=== PATIENT | male | born 1965 | race Caucasian/White ===

== ENCOUNTER 2016-04-28 11:25 | Emergency (ER) | payer OTHER ==
[~2016-04-28] VITALS: Ht 170.2 cm; Wt 73.0 kg
[2016-04-28 11:34] VITALS: TEMP 36.8; Ht 170.2 cm; Wt 73.0 kg
--- NOTE | 2016-04-28 12:13 | EMERGENCY ROOM VISIT NOTE ---
History First contact with patient: 11:58 Chief Complaint: KNEEPAIN Stated Complaint: SWELLING IN BOTH KNEES, LOTS OF PAIN History of Present Illness The patient is a 51 year old male who presents to the Emergency Room with complaints of knee pain. The patient states he has a history of inflammatory condition in which his knees and upper extremities become painful and swollen. The patient states that 3 days ago he began to notice pain and swelling in the left knee. He states that his right knee has begun to bother him as well. The patient states that he had fluid removed from the left knee approximately one year ago by an orthopedist in [place]. The patient rates his discomfort an 8/ 10. He denies any fevers. He denies any known injuries. Review of Systems A 10 system review of systems was completed with positives and pertinent negatives listed in the HPI. Past Medical/Surgical History Patient denies Social History Smoking Status: Current Every Day Smoker Housing Status: lives with family Current/Historical Medications Scheduled Amoxicillin & Pot Clavulanate (Augmentin 875-125 mg), 1 TAB PO BID Sulfa/Trimethoprim (Bactrim Ds 800MG/160MG), 1 TAB PO BID Scheduled PRN Oxycodone/Acetaminophen 5MG/325MG (Percocet 5MG/325MG), 1 TAB PO Q4H PRN for Pain Allergies Coded Allergies: No Known Allergies (Unverified , 04/28/16) Physical Exam Vital Signs Date Time Temp Pulse Resp B/P Pulse Ox O2 Delivery O2 Flow Rate FiO2 04/28/16 15:05 75 18 126/81 97 04/28/16 13:03 68 20 133/87 97 Room Air 04/28/16 11:34 36.8 73 18 134/85 98 Room Air Physical Exam VITALS: Vitals are noted on the nurse's note and reviewed by myself. Vital signs stable. The patient is afebrile. GENERAL: This is a 51-year-old male, in no acute distress, nondiaphoretic, well- developed well-nourished. SKIN: There is erythema, fluctuance over the left patella. There is no drainage. There is no tenting of the skin. Capillary reflex less than 2 seconds. HEAD: Normocephalic atraumatic. EARS: The external ears are normal in appearance. EYES: Pupils equal round and reactive to light and accommodation. Conjunctivae without injection, sclerae without icterus. Extraocular movements intact. NOSE: Patent, turbinates without inflammation or discharge. MOUTH: Mucous membranes moist. Tonsils are not enlarged. Pharynx without erythema or exudate. Uvula midline. Airway patent. Tongue does not deviate. NECK: Supple without nuchal rigidity. No JVD. HEART: Regular rate and rhythm without murmurs gallops or rubs. LUNGS: Clear to auscultation bilaterally without wheezes, rales or rhonchi. No retractions or accessory muscle use. MUSCULOSKELETAL: There is fluctuance, erythema and warmth over the patella of the left knee. There is no obvious joint effusion. There is no pain with joint loading. There is no tenderness of the calf or palpable cord. There is no obvious laxity. There is mild discomfort to the posterior right knee. There is no calf tenderness, palpable cord. There is no erythema, warmth or joint effusion of the right. There is no obvious laxity of the right knee. Strength 5/5 throughout. NEURO: Patient was alert and oriented to person place and time. . No focal neurological deficits. Medical Decision & Procedures ER Provider Diagnostic Interpretation: RIGHT KNEE 3 VIEWS CLINICAL HISTORY: Bilateral knee pain and swelling. COMPARISON: None FINDINGS: Alignment of the right knee is anatomic. There is no fracture. There is a moderate-sized joint effusion. Joint spaces are preserved. IMPRESSION: 1. No osseous abnormality of the right knee. 2. Moderate-sized right knee joint effusion. LEFT KNEE 3 VIEWS CLINICAL HISTORY: Left knee pain. Swelling. COMPARISON: None. DISCUSSION: No fractures or dislocations are visualized. There is pubic patellar soft tissue swelling. IMPRESSION: Prepatellar soft tissue swelling. No fractures are visualized. Laboratory Results 04/28/16 13:40 Red Blood Count 4.93, Mean Corpuscular Volume 87.2, Mean Corpuscular Hemoglobin 30.2, Mean Corpuscular Hemoglobin Concent 34.7, Mean Platelet Volume 10.4, Neutrophils (%) (Auto) 74.9, Lymphocytes (%) (Auto) 16.2, Monocytes (%) (Auto) 6.9, Eosinophils (%) (Auto) 1.4, Basophils (%) (Auto) 0.3, Neutrophils # (Auto) 8.31, Lymphocytes # (Auto) 1.80, Monocytes # (Auto) 0.77, Eosinophils # (Auto) 0.15, Basophils # (Auto) 0.03 Test 04/28/16 13:40 White Blood Count 11.09 K/uL (4.8-10.8) Red Blood Count 4.93 M/uL (4.7-6.1) Hemoglobin 14.9 g/dL (14.0-18.0) Hematocrit 43.0 % (42-52) Mean Corpuscular Volume 87.2 fL (80-100) Mean Corpuscular Hemoglobin 30.2 pg (25-34) Mean Corpuscular Hemoglobin Concent 34.7 g/dl (32-36) Platelet Count 256 K/uL (130-400) Mean Platelet Volume 10.4 fL (7.4-10.4) Neutrophils (%) (Auto) 74.9 % Lymphocytes (%) (Auto) 16.2 % Monocytes (%) (Auto) 6.9 % Eosinophils (%) (Auto) 1.4 % Basophils (%) (Auto) 0.3 % Neutrophils # (Auto) 8.31 K/uL (1.4-6.5) Lymphocytes # (Auto) 1.80 K/uL (1.2-3.4) Monocytes # (Auto) 0.77 K/uL (0.11-0.59) Eosinophils # (Auto) 0.15 K/uL (0-0.5) Basophils # (Auto) 0.03 K/uL (0-0.2) RDW Standard Deviation 40.1 fL (36.4-46.3) RDW Coefficient of Variation 12.5 % (11.5-14.5) Immature Granulocyte % (Auto) 0.3 % Immature Granulocyte # (Auto) 0.03 K/uL (0.00-0.02) Medications Administered Medications (Trade) Dose Ordered Sig/Hattie Route Start Time Stop Time Status Last Admin Dose Admin Ampicillin Sodium/ Sulbactam Sodium/ Sodium Chloride (Unasyn Inj/Nss 100ml) 108 ml @ 200 mls/hr ONE ONCE IV 04/28/16 13:30 04/28/16 14:02 DC 04/28/16 14:16 200 MLS/HR Procedure Prepatellar bursitis was drained. The left leg was identified and prepped in sterile fashion. The area was cleaned with Betadine. 3 ML's of 1% buffered lidocaine were used to anesthetize the skin via infiltration. An 18-gauge needle was used to express purulent material, approximately 3 mL. The wound was dressed in an Mitchell wrap was placed. The patient tolerated the procedure well. ED Course The patient was seen and examined. Previous visits were reviewed. The patient does not have fever. He is a mild leukocytosis of 11.09. X-ray of the right knee reveals joint effusion but no obvious bony abnormality X-ray of the left knee reveals prepatellar edema The patient appears to have prepatellar bursitis of the left knee. The patient does not have any pain with joint loading. He does not have any significant pain with movement of the joint. I do not suspect that this represents a joint infection at this time. The prepatellar bursitis was drained as above and moderate purulent material was expressed. He was given IV Unasyn and will be placed on Augmentin and Bactrim. He'll be given a prescription for pain medication. The patient does not have any erythema, warmth or pain with joint loading of the right knee. He does not have any obvious laxity. 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 He states that he has seen orthopedist for this. He states that he has been tested for Lyme disease in the past including a Lyme test on fluid that was drained from his joints. He states that the tests were negative. He has never seen a timber management technician. I advised him that he may need to see a timber management technician for his underlying joint problems. Today, he appears to have an infected prepatellar bursitis of the left knee. He should return in 24-48 hours for a recheck. He should follow-up with orthopedics. He should return with any fevers or worsening symptoms. The case was discussed with Dr. Gomez who agrees with the assessment and treatment plan Medical Decision The differential diagnosis includes septic arthritis, prepatellar bursitis, infected bursitis, strain, sprain, migratory arthritis, Lyme disease, among others [place] Drug Monitoring Program Search Results: patient reviewed within database, no issues identified Impression Primary Impression: Other infective bursitis, left knee Additional Impression: Effusion, right knee Departure Information Dispostion Home / Self-Care Condition GOOD Prescriptions Oxycodone/Acetaminophen 5MG/325MG (PERCOCET 5MG/325MG) Tab 1 TAB PO Q4H Y for Pain, #18 TAB For Initial Treatment Prov: Zaria Lee PA-C 04/28/16 Amoxicillin & Pot Clavulanate (Augmentin 875-125 mg) 1 Tab Tab 1 TAB PO BID for 10 Days, #20 TAB Prov: Zaria Lee PA-C 04/28/16 Sulfa/Trimethoprim (Bactrim Ds 800MG/160MG) Tab 1 TAB PO BID for 10 Days, #20 TAB Prov: Zaria Lee PA-C 04/28/16 Referrals No Doctor, Assigned (PCP) Varun Watkins M.D. Patient Instructions Bursitis, [facility] Additional Instructions Augmentin every 12 hours for 10 days Bactrim every 12 hours for 10 days Percocet 1-2 tablet every 4-6 hours as needed for worse pain. No driving or alcohol use with Percocet and do not take with Tylenol. Keep the area clean and dry Return to the emergency department in 24-48 hours for a recheck Follow-up with an orthopedic doctor for further evaluation and management of the ongoing joint pain Problem Qualifiers
[2016-04-28] MEDS ORDERED: XYLOCAINE 1%/SOD BICARB 20 ML VIAL INFIL ONE (12:15)
--- NOTE | 2016-04-28 12:42 | DIAGNOSTIC IMAGING REPORT ---
RIGHT KNEE 3 VIEWS CLINICAL HISTORY: Bilateral knee pain and swelling. COMPARISON: None FINDINGS: Alignment of the right knee is anatomic. There is no fracture. There is a moderate-sized joint effusion. Joint spaces are preserved. IMPRESSION: 1. No osseous abnormality of the right knee. 2. Moderate-sized right knee joint effusion. Electronically signed by: Eric Perez M.D. 04/28/2016 12:40 PM Dictated Date/Time: 04/28/2016 12:39 PM
--- NOTE | 2016-04-28 12:46 | DIAGNOSTIC IMAGING REPORT ---
LEFT KNEE 3 VIEWS CLINICAL HISTORY: Left knee pain. Swelling. COMPARISON: None. DISCUSSION: No fractures or dislocations are visualized. There is pubic patellar soft tissue swelling. IMPRESSION: Prepatellar soft tissue swelling. No fractures are visualized. Electronically signed by: Ismael Dennis M.D. 04/28/2016 12:44 PM Dictated Date/Time: 04/28/2016 12:43 PM
[2016-04-28] MEDS ORDERED: AMPICILLIN/SULBACTAM SOD INJ 3,000 MG in SODIUM CHLORIDE 0.9% 100ML 100 ML IV ONE (13:30)
[2016-04-28 13:58] LABS: BASO % 0.3 %; BASO ABS # 0.03 K/uL (0-0.2); COMPLETE YES; EOS % 1.4 %; IG% 0.3 %; LYMPH % 16.2 %; MEAN CELL VOLUME 87.2 fL (80-100); MEAN CORPUSCULAR HEMOGLOBIN 30.2 pg (25-34); MEAN CORPUSCULAR HGB CONC 34.7 g/dl (32-36); MEAN PLATELET VOLUME 10.4 fL (7.4-10.4); MONO % 6.9 %; NEUT % 74.9 %; PLATELET COUNT 256 K/uL (130-400); RED BLOOD COUNT 4.93 M/uL (4.7-6.1); WHITE BLOOD COUNT 11.09 K/uL (4.8-10.8)
[2016-04-28] MEDS ORDERED: AMOX875T PO (14:27)
[2016-04-28] MEDS ORDERED: SULF800T23 PO (14:27)
[2016-04-28] MEDS ORDERED: OXYC-57 PO (14:27)
[2016-04-28 15:05] VITALS: BP 126/81; PULSE 75; O2SAT 97
--- NOTE | 2016-04-30 15:41 | Pharmacy Progress Note ---
ED Pharmacist Progress Note Date of Service: Apr 30, 2016. Patient was sent home with a prescription for Augmentin and Bactrim, which should both cover the MSSA growing from the patient's knee/wound culture. Called patient - counseled that he could stop taking the Augmentin but should continue with Bactrim for the full course of therapy. Patient acknowledged understanding. Case discussed with Dr. Chaidez.
== END 2016-04-28 15:05 | disposition home or self-care (01) ==
LOC: C.EDB 11:28 → C.EDD 15:05
DX: M71.162 Other infective bursitis, left knee (principal); M25.461 Effusion, right knee; F17.200 Nicotine dependence, unspecified, uncomplicated

== ENCOUNTER 2016-06-19 15:13 | Emergency (ER) | payer OTHER ==
[~2016-06-19] VITALS: Ht 170.2 cm; Wt 70.8 kg
[~2016-06-19 15:13] MED LIST: OXYC-57 PO
[2016-06-19 15:16] VITALS: TEMP 36.5; Ht 170.2 cm; Wt 70.8 kg
[2016-06-19] MEDS ORDERED: ACETAMINOPHEN 500 MG TAB PO STA (17:07)
[2016-06-19] MEDS ORDERED: SODIUM CHLORIDE 0.9% 1000ML 1,000 ML IV STA (17:07)
--- NOTE | 2016-06-19 17:29 | DIAGNOSTIC IMAGING REPORT ---
CHEST ONE VIEW PORTABLE CLINICAL HISTORY: cough/fever COMPARISON STUDY: 04/29/2012 FINDINGS: The cardiac and mediastinal contours are normal. There is no evidence of focal pulmonary consolidation. There is no evidence of failure. No pleural effusions are visualized.[ IMPRESSION: No active disease in the chest. Electronically signed by: Ismael Dennis M.D. 06/19/2016 5:28 PM Dictated Date/Time: 06/19/2016 5:27 PM
[2016-06-19 17:31] VITALS: O2SAT 94
[2016-06-19 17:38] LABS: BASO % 0.6 %; BASO ABS # 0.03 K/uL (0-0.2); COMPLETE YES; EOS % 0.2 %; HEMATOCRIT 48.5 % (42-52); IG% 0.6 %; LYMPH % 10.7 %; LYMPH ABS # 0.56 K/uL (1.2-3.4); MEAN CELL VOLUME 85.5 fL (80-100); MEAN CORPUSCULAR HEMOGLOBIN 30.5 pg (25-34); MEAN CORPUSCULAR HGB CONC 35.7 g/dl (32-36); MEAN PLATELET VOLUME 10.7 fL (7.4-10.4); MONO % 2.7 %; NEUT % 85.2 %; PLATELET COUNT 118 K/uL (130-400); RED BLOOD COUNT 5.67 M/uL (4.7-6.1); WHITE BLOOD COUNT 5.25 K/uL (4.8-10.8)
[2016-06-19 17:50] LABS: ALT/SGPT 53 U/L (12-78); AST/SGOT 43 U/L (15-37); BLOOD UREA NITROGEN 13 mg/dl (7-18); BUN/CREATININE RATIO 11.2 (10-20); CALCIUM 8.6 mg/dl (8.5-10.1); CARBON DIOXIDE 30 mmol/L (21-32); CHLORIDE 100 mmol/L (98-107); GLUCOSE 103 mg/dl (70-99); POTASSIUM 4.4 mmol/L (3.5-5.1); SODIUM 137 mmol/L (136-145)
[2016-06-19 18:01] LABS: ALKALINE PHOSPHATASE 94 U/L (45-117)
[2016-06-19 18:25] LABS: LYME DISEASE AB IGG NEG (NEG); LYME DISEASE AB IGM NEG (NEG)
[2016-06-19 19:26] LABS: URINE APPEARANCE CLEAR (CLEAR); URINE COLOR DK YELLOW; URINE NITRITE NEG (NEG); URINE PH 7.5 (4.5-7.5); UROBILINOGEN NEG (NEG); ZZUR CULT IF INDIC CLEAN CATCH NO
[2016-06-19 19:36] LABS: MANUAL MICROSCOPIC REQUIRED? NO; REVIEW REQ? NO; SULFASALICYLIC ACID NEG (NEG); URINE BILIRUBIN NEG (NEG)
[2016-06-19] MEDS ORDERED: OSELTAMIVIR PHOSPHATE 75 MG CAP PO STA (20:12)
[2016-06-19] MEDS ORDERED: OSEL75CA12 PO (20:33)
--- NOTE | 2016-06-19 20:34 | EMERGENCY ROOM VISIT NOTE ---
History First contact with patient: 16:55 Chief Complaint: ILLNESS Stated Complaint: SICK History of Present Illness The patient is a 51 year old male who presents to the Emergency Department by private vehicle for evaluation of his chills. He reports that last evening he developed chills. He complains of fevers, but has not taken his temperature. He also complains of occasional headaches as well as cough. He denies any recent sick contacts. He did take NyQuil last evening with minimal relief of symptoms. He did receive his influenza vaccination this year. The patient complains of diffuse joint aches and pains rated his discomfort an 8/10. He denies any dizziness, lightheadedness, blurred vision, double vision, chest pain , palpitations, hemoptysis, nausea, vomiting, or abdominal pain. He denies any diarrhea. This is not the worst headache of his life. Review of Systems A complete 10-point Review of Systems was discussed with the patient, with pertinent positives and negatives listed in the History of Present Illness. All remaining Review of Systems questions can be considered negative unless otherwise specified. Social History Smoking Status: Current Every Day Smoker Smokeless Tobacco Use: No Drug Use: none Housing Status: lives with family Current/Historical Medications Scheduled Oseltamivir (Tamiflu), 75 MG PO BID Scheduled PRN Oxycodone/Acetaminophen 5MG/325MG (Percocet 5MG/325MG), 1 TAB PO Q4H PRN for Pain Allergies Coded Allergies: No Known Allergies (Unverified , 06/19/16) Physical Exam Vital Signs Date Time Temp Pulse Resp B/P Pulse Ox O2 Delivery O2 Flow Rate FiO2 06/19/16 21:24 78 18 121/78 97 Room Air 06/19/16 20:19 81 18 117/74 96 Room Air 06/19/16 19:01 87 18 138/97 96 Room Air 06/19/16 17:57 93 06/19/16 17:31 94 Room Air 06/19/16 17:15 91 17 144/99 94 Room Air 06/19/16 15:16 36.5 60 20 107/74 95 Room Air Pain Rating (0-10): 8 Physical Exam VITAL SIGNS - Vital signs and nursing notes were reviewed. GENERAL - Well nourished, well developed 51-year-old male in no acute distress. Pt communicates well with provider and answers questions appropriately. SKIN - Without rash. HEAD - NC/AT with no obvious deformities. EYES - PERRL with EOMI bilaterally. Sclera without injection. Palpebral conjunctiva pink and moist. EARS - No deformities of external structures noted on gross examination bilaterally. No pain elicited with palpation of the tragus bilaterally. External auditory canals without discharge or otorrhea. Tympanic membranes pearly lujan without retraction or bulging. No fluid or purulent material visualized behind the TM. Handle of malleus, umbo, cone of light, pars tensa/ flaccid all easily visualized. NOSE - Midline and without cyanosis. No purulent drainage noted. Nasal mucosa without mucus discharge. MOUTH/OROPHARYNX - Without perioral cyanosis. Buccal mucosa pink and moist and without leukoplakia. Tongue midline with equal elevation of palate bilaterally. No tonsillar hypertrophy, erythema, or exudates noted. NECK - Neck with FROM. Supple to palpation. No lymphadenopathy noted. No nuchal rigidity. LUNGS - Chest wall symmetric without accessory muscle use, intercostals retractions, or central cyanosis. Normal vesicular breath sounds CTA B/L. wheezes, rales, or rhonchi appreciated. CARDIAC - RRR with S1/S2. No murmur, rubs, or gallops appreciated. ABDOMEN - Abdominal contour flat without pulsations or visible masses. BS normoactive all four quadrants. No tenderness, palpable masses, hepatosplenomegaly, or ascites noted. Medical Decision & Procedures ER Provider Diagnostic Interpretation: Radiological imaging and reports were reviewed by myself. Radiologist's Interpretation as follows: CHEST ONE VIEW PORTABLE CLINICAL HISTORY: cough/fever COMPARISON STUDY: 04/29/2012 FINDINGS: The cardiac and mediastinal contours are normal. There is no evidence of focal pulmonary consolidation. There is no evidence of failure. No pleural effusions are visualized.[ IMPRESSION: No active disease in the chest. Laboratory Results 06/19/16 17:20 Red Blood Count 5.67, Mean Corpuscular Volume 85.5, Mean Corpuscular Hemoglobin 30.5, Mean Corpuscular Hemoglobin Concent 35.7, Mean Platelet Volume 10.7, Neutrophils (%) (Auto) 85.2, Lymphocytes (%) (Auto) 10.7, Monocytes (%) (Auto) 2.7, Eosinophils (%) (Auto) 0.2, Basophils (%) (Auto) 0.6, Neutrophils # (Auto) 4.48, Lymphocytes # (Auto) 0.56, Monocytes # (Auto) 0.14, Eosinophils # (Auto) 0.01, Basophils # (Auto) 0.03 06/19/16 17:20 Test 06/19/16 17:00 06/19/16 17:20 06/19/16 17:28 06/19/16 18:45 Influenza Type A Antigen Neg for Influ A (NEG) Influenza Type B Antigen Neg for Influ B (NEG) White Blood Count 5.25 K/uL (4.8-10.8) Red Blood Count 5.67 M/uL (4.7-6.1) Hemoglobin 17.3 g/dL (14.0-18.0) Hematocrit 48.5 % (42-52) Mean Corpuscular Volume 85.5 fL (80-100) Mean Corpuscular Hemoglobin 30.5 pg (25-34) Mean Corpuscular Hemoglobin Concent 35.7 g/dl (32-36) Platelet Count 118 K/uL (130-400) Mean Platelet Volume 10.7 fL (7.4-10.4) Neutrophils (%) (Auto) 85.2 % Lymphocytes (%) (Auto) 10.7 % Monocytes (%) (Auto) 2.7 % Eosinophils (%) (Auto) 0.2 % Basophils (%) (Auto) 0.6 % Neutrophils # (Auto) 4.48 K/uL (1.4-6.5) Lymphocytes # (Auto) 0.56 K/uL (1.2-3.4) Monocytes # (Auto) 0.14 K/uL (0.11-0.59) Eosinophils # (Auto) 0.01 K/uL (0-0.5) Basophils # (Auto) 0.03 K/uL (0-0.2) RDW Standard Deviation 41.2 fL (36.4-46.3) RDW Coefficient of Variation 13.2 % (11.5-14.5) Immature Granulocyte % (Auto) 0.6 % Immature Granulocyte # (Auto) 0.03 K/uL (0.00-0.02) Anion Gap 7.0 mmol/L (3-11) Est Creatinine Clear Calc Drug Dose 69.6 ml/min Estimated GFR () 81.8 Estimated GFR (Non- 70.6 BUN/Creatinine Ratio 11.2 (10-20) Calcium Level 8.6 mg/dl (8.5-10.1) Magnesium Level 2.0 mg/dl (1.8-2.4) Total Bilirubin 0.6 mg/dl (0.2-1) Aspartate Amino Transf (AST/SGOT) 43 U/L (15-37) Alanine Aminotransferase (ALT/SGPT) 53 U/L (12-78) Alkaline Phosphatase 94 U/L (45-117) Total Creatine Kinase 89 U/L (39-308) Creatine Kinase MB < 0.5 ng/ml (0.5-3.6) Creatine Kinase MB Ratio (0-3.0) Total Protein 7.8 gm/dl (6.4-8.2) Albumin 3.9 gm/dl (3.4-5.0) Globulin 3.9 gm/dl (2.5-4.0) Albumin/Globulin Ratio 1.0 (0.9-2) Lipase 102 U/L (73-393) Thyroid Stimulating Hormone (TSH) 0.260 uIu/ml (0.300-4.500) Lyme Disease IgG Antibody NEG (NEG) Lyme Disease IgM Antibody NEG (NEG) Bedside Troponin I 0.000 ng/ml (0-0.045) Urine Color DK YELLOW Urine Appearance CLEAR (CLEAR) Urine pH 7.5 (4.5-7.5) Urine Specific Porter 1.030 (1.000-1.030) Urine Protein NEG (NEG) Urine Glucose (UA) NEG (NEG) Urine Ketones TRACE (NEG) Urine Occult Blood NEG (NEG) Urine Nitrite NEG (NEG) Urine Bilirubin NEG (NEG) Urine Urobilinogen NEG (NEG) Urine Leukocyte Esterase NEG (NEG) Urine WBC (Auto) 1-5 /hpf (0-5) Urine RBC (Auto) 5-10 /hpf (0-4) Urine Hyaline Casts (Auto) 0 /lpf (0-5) Urine Epithelial Cells (Auto) 10-20 /lpf (0-5) Urine Bacteria (Auto) NEG (NEG) Medications Administered Medications (Trade) Dose Ordered Sig/Hattie Route Start Time Stop Time Status Last Admin Dose Admin Sodium Chloride (Nss 1000ml) 1,000 ml @ 999 mls/hr Q1H1M STAT IV 06/19/16 17:07 06/19/16 18:07 DC 06/19/16 17:37 999 MLS/HR Acetaminophen (Tylenol Tab) 1,000 mg NOW STAT PO 06/19/16 17:07 06/19/16 17:10 DC 06/19/16 17:38 1,000 MG Oseltamivir Phosphate (Tamiflu Cap) 75 mg NOW STAT PO 06/19/16 20:12 06/19/16 20:13 DC 06/19/16 20:22 75 MG Procedure Patient was placed on the playground monitor and monitored throughout the entire extent of their stay. In addition, the patient's pulse oximetry was monitored throughout the entire stay. Any abnormalities or aberrancies were addressed appropriately. ECG Indication: weakness Rate (beats per minute): 90 Rhythm: normal sinus Findings: no acute ischemic change, no ectopy Change: no significant change (from 04/29/2012.) ED Course Patient was seen and evaluated by myself. Labs were drawn, saline lock in place. The patient was hydrated with 1000 mL normal saline bolus. He received 1 g of Tylenol orally. EKG and chest x-rays were obtained. Laboratory results demonstrate no acute leukocytosis, worrisome anemia, or bandemia. The patient has no significant electrolyte abnormalities. Cardiac enzymes and troponin are negative. Chest x-ray demonstrate no areas of consolidation. Patient was reevaluated and reports feeling markedly better at this time. The patient was treated with initial dose of Tamiflu in the emergency setting. He was instructed to follow-up with his primary care provider from today's visit. He was educated on worrisome symptoms for return visit to the emergency department. Patient discharged home afebrile and in good condition. Medical Decision Given the patient's presentation and stated complaint, I did elect to perform the above-mentioned workup. The patient presents today complaining of diffuse body aches as well as chills. He has no fever presentation. He has no leukocytosis. Cardiac evaluation is unremarkable. The patient responded well to oral Tylenol as well as IV fluids. The patient is likely expansion an early viral upper respiratory infection. His symptoms are consistent with influenza- like illness. He was placed on Tamiflu prophylactically. He'll continue over- the-counter medications for his ongoing symptoms. He will return the emergency department in the event of any changing or worsening symptoms. Patient discharged home afebrile and in good condition. In the evaluation and treatment of this patient, the following differential diagnoses were considered: Influenza, mono, strep, ACS, SC, PE, pneumonia, bronchitis, meningitis, cephalitis, amongst others. Impression Primary Impression: Flu-like symptoms Additional Impression: Chills Departure Information Dispostion Home / Self-Care Condition GOOD Prescriptions Oseltamivir (Tamiflu) 75 Mg Cap 75 MG PO BID for 5 Days, #10 CAP Prov: Devin Carroll, JOHN 06/19/16 Referrals No Doctor, Assigned (PCP) Patient Instructions My [facility] Additional Instructions You have been seen in the emergency department today for your flulike symptoms. Please use the Tamiflu as prescribed. For pain control, you can use the following [id number] medicines (if >12 yo): - Regular strength (325mg/tab) Tylenol (acetaminophen) 2 tabs every 4-6 hours as needed. Do not exceed 12 tablets in a 24 hour period. Avoid taking more than 4 grams (4000 mg) of Tylenol per day. This includes any other sources of acetaminophen you may take on a regular basis. - Regular strength (200 mg/tab) Advil (ibuprofen) 1-2 tabs every 4-6 hours as needed. Do not exceed a dose of 3200 mg per day. Follow-up with your primary care provider for recheck in the next 24-48 hours. Return for any changing or worsening symptoms. Problem Qualifiers
[2016-06-19 21:24] VITALS: BP 121/78; PULSE 78; O2SAT 97
== END 2016-06-19 21:20 | disposition home or self-care (01) ==
LOC: C.EDB 15:14
DX: J11.1 Influenza due to unidentified influenza virus with other respiratory manifestations (principal); F17.200 Nicotine dependence, unspecified, uncomplicated

== ENCOUNTER 2016-07-08 17:30 | Emergency (ER) | payer OTHER ==
[~2016-07-08] VITALS: Ht 170.2 cm; Wt 69.7 kg
[2016-07-08 17:54] VITALS: TEMP 37.2; Ht 170.2 cm; Wt 69.7 kg
[2016-07-08] MEDS ORDERED: SODIUM CHLORIDE 0.9% 1000ML 1,000 ML IV STA (19:52)
[2016-07-08] MEDS ORDERED: GI COCKTAIL PO STA (19:52)
[2016-07-08] MEDS ORDERED: RANITIDINE HCL SYRUP 150 MG/10 ML UDC PO ONE (20:00)
--- NOTE | 2016-07-08 20:00 | EMERGENCY ROOM VISIT NOTE ---
History Report prepared by Sierra: Shannon Franco Under the Supervision of: Dr. Bobby Gutierrez M.D. First contact with patient: 19:42 Chief Complaint: ABDOMINAL PAIN Stated Complaint: ABDOMEN PAIN Nursing Triage Summary: Pt presents with epigastric pain x 1 week. Denies n/v/d. Pt states, "It started after I got done having the flu about a week ago. I just have the pain." History of Present Illness The patient is a 51 year old male who presents to the Emergency Room with complaints of persistent epigastric abdominal pain that started a week ago. He rates this pain a 9/10 in severity. This pain gets better with drinking milk. Per the patient, he was diagnosed with the flu 3 weeks ago. He was prescribed antibiotics at this time. The patient reports that the flu went away but came back about a week ago. He was again prescribed an antibiotic which offered relief. The patient states that when his symptoms related to the flu went away, he began to experience this abdominal pain. The patient denies nausea, vomiting , diarrhea, headaches, fevers, chest pain, shortness of breath, or additional associated symptoms. He also denies excessive Ibuprofen or alcohol use. The patient is an everyday smoker. Source of History: patient Onset: A week ago Position: abdomen Symptom Intensity: 9/10 Timing: other (Persistent ) Modifying Factors (Relieving): other (Drinking milk ) Associated Symptoms: No SOB, No chest pain, No diarrhea, No nausea, No vomiting Review of Systems See HPI for pertinent positives & negatives. A total of 10 systems reviewed and were otherwise negative. Past Medical & Surgical Medical Problems: (1) Influenza Family History Unknown Social History Smoking Status: Current Every Day Smoker Drug Use: none Marital Status: Housing Status: lives with family Current/Historical Medications Scheduled Famotidine (Pepcid), 20 MG PO DIRECTED Scheduled PRN Oxycodone/Acetaminophen 5MG/325MG (Percocet 5MG/325MG), 1 TAB PO Q4H PRN for Pain Allergies Coded Allergies: No Known Allergies (Unverified , 06/19/16) Physical Exam Vital Signs Date Time Temp Pulse Resp B/P Pulse Ox O2 Delivery O2 Flow Rate FiO2 07/08/16 21:56 79 16 130/74 97 Room Air 07/08/16 20:05 70 20 116/68 98 Room Air 07/08/16 17:54 37.2 93 18 122/79 99 Room Air Physical Exam GENERAL: Patient is well appearing and in minimal distress. HEENT: No acute trauma, normocephalic atraumatic, mucous membranes moist, no nasal congestion, no scleral icterus. NECK: No stridor, no adenopathy, no meningismus, trachea is midline. LUNGS: No dyspnea. Clear to auscultation and equal bilaterally. No wheeze, no rhonchi. HEART: Regular rate and rhythm. No murmurs, rubs, gallops appreciated. ABDOMEN: Soft, nontender, bowel sounds positive, no masses appreciated, no peritonitis. BACK: No midline tenderness, no CVA tenderness EXTREMITIES: Normal motion all extremities, no cyanosis, no edema. NEUROLOGIC: Alert and oriented, no acute motor or sensory deficits, no focal weakness, cranial nerves grossly intact. SKIN: No rash, no jaundice, no diaphoresis. Medical Decision & Procedures Laboratory Results 07/08/16 20:10 Red Blood Count 4.62, Mean Corpuscular Volume 85.3, Mean Corpuscular Hemoglobin 29.7, Mean Corpuscular Hemoglobin Concent 34.8, Mean Platelet Volume 9.8, Neutrophils (%) (Auto) 36.4, Lymphocytes (%) (Auto) 46.7, Monocytes (%) (Auto) 13.0, Eosinophils (%) (Auto) 1.9, Basophils (%) (Auto) 0.9, Neutrophils # (Auto ) 1.71, Lymphocytes # (Auto) 2.19, Monocytes # (Auto) 0.61, Eosinophils # (Auto ) 0.09, Basophils # (Auto) 0.04 07/08/16 20:10 Test 07/08/16 20:10 White Blood Count 4.69 K/uL (4.8-10.8) Red Blood Count 4.62 M/uL (4.7-6.1) Hemoglobin 13.7 g/dL (14.0-18.0) Hematocrit 39.4 % (42-52) Mean Corpuscular Volume 85.3 fL (80-100) Mean Corpuscular Hemoglobin 29.7 pg (25-34) Mean Corpuscular Hemoglobin Concent 34.8 g/dl (32-36) Platelet Count 294 K/uL (130-400) Mean Platelet Volume 9.8 fL (7.4-10.4) Neutrophils (%) (Auto) 36.4 % Lymphocytes (%) (Auto) 46.7 % Monocytes (%) (Auto) 13.0 % Eosinophils (%) (Auto) 1.9 % Basophils (%) (Auto) 0.9 % Neutrophils # (Auto) 1.71 K/uL (1.4-6.5) Lymphocytes # (Auto) 2.19 K/uL (1.2-3.4) Monocytes # (Auto) 0.61 K/uL (0.11-0.59) Eosinophils # (Auto) 0.09 K/uL (0-0.5) Basophils # (Auto) 0.04 K/uL (0-0.2) RDW Standard Deviation 44.4 fL (36.4-46.3) RDW Coefficient of Variation 14.3 % (11.5-14.5) Immature Granulocyte % (Auto) 1.1 % Immature Granulocyte # (Auto) 0.05 K/uL (0.00-0.02) Anion Gap 7.0 mmol/L (3-11) Est Creatinine Clear Calc Drug Dose 93.9 ml/min Estimated GFR () 116.4 Estimated GFR (Non- 100.4 BUN/Creatinine Ratio 29.9 (10-20) Calcium Level 9.0 mg/dl (8.5-10.1) Total Bilirubin 0.4 mg/dl (0.2-1) Direct Bilirubin 0.1 mg/dl (0-0.2) Aspartate Amino Transf (AST/SGOT) 23 U/L (15-37) Alanine Aminotransferase (ALT/SGPT) 36 U/L (12-78) Alkaline Phosphatase 92 U/L (45-117) Troponin I < 0.015 ng/ml (0-0.045) Total Protein 7.7 gm/dl (6.4-8.2) Albumin 3.6 gm/dl (3.4-5.0) Lipase 162 U/L (73-393) Laboratory results as reviewed by me. Medications Administered Medications (Trade) Dose Ordered Sig/Hattie Route Start Time Stop Time Status Last Admin Dose Admin Sodium Chloride (Nss 1000ml) 1,000 ml @ 999 mls/hr Q1H1M STAT IV 07/08/16 19:52 07/08/16 20:52 DC 07/08/16 20:17 999 MLS/HR Ranitidine HCl (zANTac SYRUP) 150 mg NOW ONCE PO 07/08/16 20:00 07/08/16 20:01 DC 07/08/16 20:15 150 MG Lidocaine HCl (Viscous Lidocaine 2% Soln) 20 ml STK-MED ONCE .ROUTE 07/08/16 20:15 07/08/16 20:16 DC 07/08/16 20:15 20 ML Al Hydroxide/Mg Hydroxide (Maalox Susp) 30 ml STK-MED ONCE .ROUTE 07/08/16 20:15 07/08/16 20:16 DC 07/08/16 20:14 30 ML ECG Indication: abdominal pain Rate (beats per minute): 70 Rhythm: normal sinus Findings: no acute ischemic change, no ectopy ED Course 1945: The patient was evaluated in room C8. A complete history and physical exam was performed. 1951: Ordered GI Cocktail 24 ml PO, Sodium Chloride 1,000 ml @ 999 mls/hr IV. 1999: Ordered Ranitidine HCL 150 mg 2131: Upon reevaluation, the patient is resting comfortable. He woke easily when I talked to him. He states that he is feeling much better. Discussed results and treatment plan with the patient. He verbalized understanding and agreement with the treatment plan. 2139: Reevaluated the patient. Discussed results and discharge instructions: He verbalized understanding and agreement. The patient is ready for discharge. Medical Decision Differential: Cholecystitis, Gallbladder disfunction, Hepatic Disfunction, Gastritis/PUD, Pancreatitis, ACS, Aortic Pathology, amongst other pathologies entertained. 51 yr old male arrives with epigastric abdominal discomfort after having flu like infection. Better with drinking milk as well as GI cocktail here. No evidence ACS. Labs look good. No TTP on examination. He does not have surgical abdomen. He is not septic nor in any significant distress post gi cocktail. Seems very likely this is PUD thus will do BID Pepcid for next 10 days followed by once daily. Reviewed symptoms requiring RTED. Impression Primary Impression: Epigastric abdominal pain Scribe Attestation The scribe's documentation has been prepared under my direction and personally reviewed by me in its entirety. I confirm that the note above accurately reflects all work, treatment, procedures, and medical decision making performed by me. Departure Information Dispostion Home / Self-Care Prescriptions Famotidine (Pepcid) 20 Mg Tab 20 MG PO DIRECTED, #50 TAB Take one tablet twice daily for 10 days, then once daily. Prov: Bobby Gutierrez M.D. 07/08/16 Referrals Primary Care Provider Forms Call Back Authorization, HOME CARE DOCUMENTATION FORM, IMPORTANT VISIT INFORMATION Patient Instructions ED Epigastric Pain [facility]HA[facility], [facility], [facility]
[2016-07-08] MEDS ORDERED: ALUMINUM/MAGNESIUM SUSP 30 ML UDC ONE (20:15)
[2016-07-08] MEDS ORDERED: LIDOCAINE HCL 2% VISC SOLN 20 ML UDC ONE (20:15)
[2016-07-08 20:34] LABS: BASO % 0.9 %; BASO ABS # 0.04 K/uL (0-0.2); COMPLETE YES; EOS % 1.9 %; HEMATOCRIT 39.4 % (42-52); IG% 1.1 %; LYMPH % 46.7 %; LYMPH ABS # 2.19 K/uL (1.2-3.4); MEAN CELL VOLUME 85.3 fL (80-100); MEAN CORPUSCULAR HEMOGLOBIN 29.7 pg (25-34); MEAN CORPUSCULAR HGB CONC 34.8 g/dl (32-36); MEAN PLATELET VOLUME 9.8 fL (7.4-10.4); NEUT % 36.4 %; PLATELET COUNT 294 K/uL (130-400); RED BLOOD COUNT 4.62 M/uL (4.7-6.1); WHITE BLOOD COUNT 4.69 K/uL (4.8-10.8)
[2016-07-08 20:46] LABS: ALT/SGPT 36 U/L (12-78); BLOOD UREA NITROGEN 27 mg/dl (7-18); BUN/CREATININE RATIO 29.9 (10-20); CARBON DIOXIDE 26 mmol/L (21-32); CHLORIDE 105 mmol/L (98-107); CREATININE 0.89 mg/dl (0.60-1.40); GLUCOSE 93 mg/dl (70-99); POTASSIUM 3.9 mmol/L (3.5-5.1); SODIUM 138 mmol/L (136-145)
[2016-07-08 20:51] LABS: ALKALINE PHOSPHATASE 92 U/L (45-117); AST/SGOT 23 U/L (15-37)
[2016-07-08] MEDS ORDERED: FAMO20TA11 PO (21:32)
[2016-07-08 21:56] VITALS: BP 130/74; PULSE 79; O2SAT 97
== END 2016-07-08 21:58 | disposition home or self-care (01) ==
LOC: C.EDB 17:32 → C.EDC 21:58
DX: R10.13 Epigastric pain (principal); F17.210 Nicotine dependence, cigarettes, uncomplicated